=== PATIENT | male | born 1965 | race Caucasian/White ===

== ENCOUNTER → 2018-01-16 | Outpatient (CLI) | payer BC, OTHER | END | disposition home or self-care (01) | LOC: SPEC 11:41 | DX: Z48.03 Encounter for change or removal of drains (principal) ==

== ENCOUNTER → 2018-03-04 | Outpatient (CLI) | payer BC, OTHER | LOC: MRI 07:02 | DX: K82.9 Disease of gallbladder, unspecified (principal); Z90.49 Acquired absence of other specified parts of digestive tract ==